=== PATIENT | male | born 1970 | race Caucasian/White ===

== ENCOUNTER → 2017-02-03 08:13 | Emergency (ER) | payer BC, OTHER ==
[~2017-02-03 08:13] MED LIST: Lidocaine 1%* 5 ML VIAL ONE; Tetan/Diph/Pertus SYR(Tdap)* 0.5 ML SYR(BOOSTRIX) use SYR IM ONE
[2017-02-03 08:18] VITALS: BP 133/84
--- NOTE | 2017-02-03 09:42 | ED ---
Laceration/Wound HPI - HPI Summary HPI Summary: 46 male presents with complaints of a left foot laceration on the bottom of his foot just under toes that he sustained this morning. States he was walking to get his mail and had to cross a [place] while doing so. He thinks he cut his foot on a rock and it also caused him to fall on his bottom. Denies hitting his head or LOC. No other complaints, injuries or lacerations. Patient states the bleeding is pretty well controlled. Denies much pain. Full range of motion. No PMHx, no medications. - History of Current Complaint Stated Complaint: LT FOOT LAC Time Seen by Provider: 02/03/17 08:39 Hx Obtained From: Patient Mechanism of Injury: Sharp/Blunt Trauma - broken rock, unknown for sure Onset/Duration: Sudden Onset Aggravating: Movement Timing: Constant Onset Severity: Mild Current Severity: None Pain Intensity: 0 Pain Scale Used: 0-10 Numeric Associated Signs & Symptoms: Negative - Allergy/Home Medications Allergies/Adverse Reactions: Allergies Allergy/AdvReac Type Severity Reaction Status Date / Time No Known Allergies Allergy Verified 01/26/15 10:47 PMH/Surg Hx/FS Hx/Imm Hx Endocrine/Hematology History: Denies: Hx Diabetes Cardiovascular History: Denies: Hx Hypertension, Hx Pacemaker/ICD Respiratory History: Denies: Hx Asthma Sensory History: Denies: Hx Hearing Aid Psychiatric History: Denies: Hx Panic Disorder - Surgical History Surgery Procedure, Year, and Place: CYST REMOVER ON OUTER RT EAR/EARS PINNED BACK CHILD. UMBILICAL HERNIA REPAIR. [facility] Infectious Disease History: Denies: Traveled Outside the [place] in Last 30 Days - Family History Known Family History: Positive: None - Social History Alcohol Use: Occasionally Substance Use Type: Reports: None Smoking Status (MU): Never Smoked Tobacco Review of Systems Constitutional: Negative Cardiovascular: Negative Respiratory: Negative Positive: Other - laceration Neurological: Negative All Other Systems Reviewed And Are Negative: Yes Physical Exam Triage Information Reviewed: Yes Vital Signs On Initial Exam: Initial Vitals Temp Pulse Resp BP Pulse Ox 98.5 F 94 16 133/84 94 02/03/17 08:15 02/03/17 08:15 02/03/17 08:15 02/03/17 08:15 02/03/17 08:15 Completion Of Physical Exam Limited Due To: Dementia Appearance: Positive: Well-Appearing, No Pain Distress, Well-Nourished Skin: Positive: Warm, Skin Color Reflects Adequate Perfusion, Dry, Other - laceration approximately 3cm length linear on plantar side of left foot just beneath toes 1-2, on "foot pads". minimal bleeding, .5cm depth, no FB. No complications. rest of skin exam normal.. Negative: Cold, Numb, Cyanosis @, Pale Head/Face: Positive: Normal Head/Face Inspection. Negative: TMJ Tenderness, Scalp, Cephalohematoma Eyes: Positive: Normal, Conjunctiva Clear ENT: Positive: Hearing grossly normal Neck: Positive: Supple, Nontender, No Lymphadenopathy Respiratory/Lung Sounds: Positive: Clear to Auscultation, Breath Sounds Present. Negative: Rales, Rhonchi, Wheezes Cardiovascular: Positive: Normal, RRR, Pulses are Symmetrical in both Upper and Lower Extremities - 2+ bilaterally pedal. Negative: Murmur, Rub Musculoskeletal: Positive: Normal, Strength/ROM Intact. Negative: Limited @, Interruption @, Pain @, Edema Left, Edema Right Neurological: Positive: Normal, Sensory/Motor Intact - sensation intact, Alert, Oriented to Person Place, Time, CN Intact II-III, Reflexes Intact, NV Bundle Intact Distally, Normal Gait Psychiatric: Positive: Affect/Mood Appropriate Procedures - Laceration/Wound Repair 1 Location: Other - left bottom of foot Description: Linear Anesthesia: Local, 1.0%, Lido Length, Depth and Shape: 3cm length, 1mm depth, linear Betadine Prep?: Yes Irrigated w/ Saline (ccs): 200 Laceration/Wound Explored: clean, no foreign body removed Closure: Single Layer Suture Type: Nylon Number of Sutures: 3 Sterile Dressing Applied?: Yes Diagnostics - Vital Signs Vital Signs Temp Pulse Resp BP Pulse Ox 02/03/17 08:49 98.5 F 94 16 133/84 97 02/03/17 08:15 98.5 F 94 16 133/84 94 - Laboratory Lab Statement: Any lab studies that have been ordered have been reviewed, and results considered in the medical decision making process. Laceration Repair Course/Dx - Course Course Of Treatment: due to PE findings and HPI no x-ray obtained. laceration was sutured without complication. patient tolerated procedure well. 3 simple interrupted sutures placed. tetanus was updated. aware of worsening signs and symptoms to watch out for. keep clean and dry. remove in 7-10 days. follow up with pcp. - Differential Dx Differental Diagnoses: Abrasion, Avulsion, Cellulitis, Laceration, Tendon Laceration - Clinical Impression Provider Diagnoses: Laceration of left foot Discharge - Discharge Plan Condition: Stable Disposition: HOME Patient Education Materials: Laceration (ED), Care For Your Stitches (ED) Referrals: Non Staff,Doctor [Primary Care Provider] - Additional Instructions: Do not get stitches wet for the next 24 hours. Do not submerge stitches in water. Keep clean and dry. Watch for signs of infection. Any new symptoms or worsening symptoms seek medical attention promptly. Ibuprofen for pain and inflammation. It may be a little sore for the next few days. Follow up with PCP. Have stitches removed in 7-10 days.
== END | disposition home or self-care (01) ==
LOC: ED 08:13
DX: S91.312A Laceration without foreign body, left foot, initial encounter (principal); W26.9XXA Contact with unspecified sharp object(s), initial encounter; Y93.9 Activity, unspecified; Y92.9 Unspecified place or not applicable
CPT/HCPCS: 12002; 90471; 90715; 99281

== ENCOUNTER 2017-02-06 14:25 | Emergency (ER) | payer OTHER ==
[2017-02-06 14:52] VITALS: BP 134/79
--- NOTE | 2017-02-06 14:53 | UC ---
HPI Wound/Suture Re-check - HPI Summary HPI Summary: wound recheck from sutures on bottom of left foot 3 days ago---3 sutures placed - History Of Current Complaint Chief Complaint: UCSkin Stated Complaint: WOUND CHECK Time Seen by Provider: 02/06/17 14:45 Hx Obtained From: Patient Onset/Duration: Sudden Onset, Lasting Days - 3, Still Present, Worse Since - last night Surgical Site: bottom of left foot Severity: Moderate - Allergies/Home Medications Allergies/Adverse Reactions: Allergies Allergy/AdvReac Type Severity Reaction Status Date / Time No Known Allergies Allergy Verified 01/26/15 10:47 PMH/Surg Hx/FS Hx/Imm Hx Previously Healthy: Yes - Surgical History Surgical History: Yes Surgery Procedure, Year, and Place: CYST REMOVER ON OUTER RT EAR/EARS PINNED BACK CHILD. UMBILICAL HERNIA REPAIR. [facility] - Family History Known Family History: Positive: None - Social History Occupation: Employed Full-time Lives: With Family Alcohol Use: Occasionally Substance Use Type: None Smoking Status (MU): Never Smoked Tobacco Review of Systems Constitutional: Negative Skin: Other - purulent drainage from wound on foot 2/3/4 toes swollen erythema on top of foot no lymphstreaking Eyes: Negative ENT: Negative Respiratory: Negative Cardiovascular: Negative Gastrointestinal: Negative Genitourinary: Negative Motor: Negative Neurovascular: Negative Musculoskeletal: Negative Neurological: Negative Psychological: Negative All Other Systems Reviewed And Are Negative: Yes Physical Exam Triage Information Reviewed: Yes Appearance: Well-Appearing, No Pain Distress, Well-Nourished Vital Signs Reviewed: Yes Eye Exam: Normal Eyes: Positive: Conjunctiva Clear ENT Exam: Normal ENT: Positive: Normal ENT inspection, Hearing grossly normal. Negative: Nasal congestion, Nasal drainage, Trismus, Muffled/hoarse voice Dental Exam: Normal Neck exam: Normal Neck: Positive: Supple, Nontender Respiratory Exam: Normal Respiratory: Positive: Chest non-tender, No respiratory distress, No accessory muscle use Cardiovascular Exam: Normal Cardiovascular: Positive: RRR, Pulses Normal, Brisk Capillary Refill Musculoskeletal Exam: Normal Musculoskeletal: Positive: Strength Intact, ROM Intact, Edema @ - bottom for left foot 2,3,4 toes Neurological Exam: Normal Neurological: Positive: Alert Psychological Exam: Normal Skin Exam: Normal Skin: Positive: Other - purulent drainage from wound on bottom of foot, toes swollen erythema distal 1/3 of the top of foot Re-Evaluation - Re-Evaluation First Eval Change: Improved - wound culture obtained, middle suture removed, patient tolerated well Course/Dx - Course Course Of Treatment: warm soaks, augmentin, fluffy dressing, crutches, post op shoes return in 2 days for a wound check - Differential Dx - Laceration/Wound Differential Diagnoses: Abscess, Cellulitis, Joint Infection Provider Diagnoses: Infection left foot s/p sutured wound Discharge - Discharge Plan Condition: Stable Disposition: HOME Prescriptions: Amoxicillin/Clavulanate TAB* [Augmentin TAB 875*] 875 mg PO BID #20 tab Patient Education Materials: Amoxicillin/Clavulanate Potassium (By mouth), Crutch Instructions (ED), Wound Infection (ED), Warm Compress or Soak (ED) Referrals: Non Staff,Doctor [Medical Doctor] - Additional Instructions: Return in 2 days for wound recheck
== END 2017-02-06 15:20 | disposition home or self-care (01) ==
LOC: UCEAST 14:25
DX: T81.4XXA Infection following a procedure, initial encounter (principal); L08.9 Local infection of the skin and subcutaneous tissue, unspecified; B96.89 Other specified bacterial agents as the cause of diseases classified elsewhere
CPT/HCPCS: 87070; 87205; 87640; 87641; 99213; G0463

== ENCOUNTER 2017-02-08 19:01 | Emergency (ER) | payer OTHER ==
[2017-02-08 19:25] VITALS: BP 131/83
--- NOTE | 2017-02-08 19:32 | UC ---
[facility] General HPI - HPI Summary HPI Summary: here for wound rechecked 02/03/17 suffered laceration bottom of his left foot and had sutures placed in ED 02/06 he went for a recheck of wound at urgent care due to large amount of exudate, pain and redness spreading into his foot suture removed and he was started augmentin since starting antibiotic redness and pain are lessening taking advil occasionally for pain denies fever and chills - History of Current Complaint Chief Complaint: UCLowerExtremity Stated Complaint: F/U FOOT INJURY VISIT Time Seen by Provider: 02/08/17 19:26 Hx Obtained From: Patient - Allergy/Home Medications Allergies/Adverse Reactions: Allergies Allergy/AdvReac Type Severity Reaction Status Date / Time No Known Allergies Allergy Verified 01/26/15 10:47 PMH/Surg Hx/FS Hx/Imm Hx Previously Healthy: No - laceration - Surgical History Surgical History: Yes Surgery Procedure, Year, and Place: CYST REMOVER ON OUTER RT EAR/EARS PINNED BACK CHILD. UMBILICAL HERNIA REPAIR. [facility] - Family History Known Family History: Positive: None Negative: Cardiac Disease, Hypertension, Diabetes - Social History Occupation: Employed Full-time Lives: With Family Alcohol Use: Occasionally Substance Use Type: None Smoking Status (MU): Never Smoked Tobacco - Immunization History Most Recent Tetanus Shot: 02/03/17 Review of Systems Constitutional: Negative Skin: Other - right gfoot laceration Eyes: Negative ENT: Negative Respiratory: Negative Cardiovascular: Negative Gastrointestinal: Negative Genitourinary: Negative Motor: Negative Neurovascular: Negative Musculoskeletal: Negative Neurological: Negative Psychological: Negative All Other Systems Reviewed And Are Negative: Yes Physical Exam Triage Information Reviewed: Yes Appearance: No Pain Distress, Well-Nourished Vital Signs: Initial Vital Signs Temp 98 F 02/08/17 19:21 Pulse 73 02/08/17 19:21 Resp 18 02/08/17 19:21 BP 131/83 02/08/17 19:21 Pulse Ox 100 02/08/17 19:21 Vital Signs Reviewed: Yes Eyes: Positive: Conjunctiva Clear ENT: Positive: Pharynx normal, TMs normal Neck: Positive: No Lymphadenopathy Respiratory: Positive: Lungs clear, Normal breath sounds, No respiratory distress, No accessory muscle use Cardiovascular: Positive: RRR, No Murmur, Pulses Normal Abdomen Description: Positive: Nontender, Soft Bowel Sounds: Positive: Present Musculoskeletal Exam: Normal Neurological Exam: Normal Psychological Exam: Normal Skin: Positive: Other - left foot with 2.5cm laceration with 2 sutures, midlle not approximated, small area of erythema surrounding wound,no exudate Course/Dx - Differential Dx - Multi-Symptom Provider Diagnoses: laceration/cellulitis recheck- left foot Discharge - Discharge Plan Condition: Stable Disposition: HOME Patient Education Materials: Stitches Removal (ED), Cellulitis (ED) Referrals: No Primary Care Phys,NOPCP [Primary Care Provider] - [facility] [Outside] Additional Instructions: Please continue antibiotic as directed change dressing on your foot daily and if it gets moist return in 6-8 days for suture removal or sooner if area of redness or pain increases or if you get a fever Increase fluids and rest Take acetaminophen or ibuprofen for fever or pain Please review your discharge instructions. If your symptoms do not improve please call your primary care provider or return to urgent care.
== END 2017-02-08 20:17 | disposition home or self-care (01) ==
LOC: UCEAST 19:01
DX: Z51.89 Encounter for other specified aftercare (principal); S91.312D Laceration without foreign body, left foot, subsequent encounter; L03.116 Cellulitis of left lower limb
CPT/HCPCS: 99211; G0463